=== PATIENT | male | born 1985 | race Two or more races ===

== ENCOUNTER 2019-08-15 16:25 | Emergency (ER) | payer MEDICAID, OTHER ==
[~2019-08-15] VITALS: Ht 180.3 cm; Wt 84.4 kg
[2019-08-15] MEDS ORDERED: TETANUS-DIPTH-ACEL PERTUSSIS 0.5ML SYR Tdap IM ONE (16:45)
[2019-08-15 17:07] VITALS: BP 121/79
== END 2019-08-15 17:15 | disposition home or self-care (01) ==
LOC: ER 16:25
DX: S91.351A Open bite, right foot, initial encounter (principal); W54.0XXA Bitten by dog, initial encounter; Y93.89 Activity, other specified; Y92.89 Other specified places as the place of occurrence of the external cause; Y99.8 Other external cause status
CPT/HCPCS: 90471; 90715